=== PATIENT | male | born 1960 | race Caucasian/White ===

== ENCOUNTER → 2019-01-20 | Outpatient (CLI) | payer OTHER ==
--- NOTE | 2019-01-23 11:05 | PCVCIMAG ---
APPROVED REPORT Study performed: 01/20/2019 09:39:52 Exam: Stress Echocardiogram Indication: elevated calcium score, dyspnea, fam hx cad Patient Location: Echo lab Stress Nurse: Mahsa Araujo RN Status: routine Ht: 6 ft 0 in HR: 66 bpm BP: 120/82 mmHg Rhythm: NSR Procedure The patient underwent an Exercise Stress Test using the Rhett Protocol. Blood pressure, heart rate, and EKG were monitored. An Echocardiogram was performed by sugarcane research technician in four stages in quad fashion. At peak stress, four selected images were obtained and placed side by side with resting images for comparison. Stress Test Details Stress Test: Exercise stress testing was performed using a Rhett protocol. HR Resting HR: 66 bpmMax Heart Rate (APMHR): 163 bpm Max HR Achieved: 155 bpmTarget HR (85% APMHR): 138 bpm % of APMHR: 95 Recovery HR: 85 bpm HR response to stress: Normal HR response to stress BP Resting BP: 120/82 mmHg Max BP: 158/78 mmHg Recovery BP: 136/72 mmHg BP response to stress: Normal blood pressure response to stress. ECG Resting ECG: Sinus Rhythm Stress ECG: Sinus Rhythm ST Change: Nondiagnostic V-pacing or LBBB Maximum ST Deviation: -.1 mm Arrhythmia: None Recovery ECG: Sinus Rhythm Recovery ST Change: Normal Recovery Arrhythmia: None Clinical Reason for Termination: Maximal effort Stress Symptoms: Dyspnea Exercise duration: 10 min 40 sec Highest Stage Achieved: Stage 4: 4.2 mph at 16% grade. Exercise capacity: 13.4 METs Overall Exercise Capacity for Age: Good Scale: Active Angina Score: None Stress ECG Conclusion 1. subjectively negative for ischemia 2. electrocardiographically negative for ischemia 3. satisfactory functional capacity Mock Treadmill Score is 10.5 which is Low risk. Pre-Stress Echo The resting Echocardiogram showed normal left ventricular contractility with an estimated Ejection Fraction of about >55%. The resting echocardiogram demonstrated normal wall motion in all wall segments. Post-Stress Echo The stress Echocardiogram showed normal left ventricular contractility with an estimated Ejection Fraction of about 65%. Compared to rest, there were no stress-induced wall motion abnormalities. Clinical No clinical or ECG evidence for ischemia. Conclusion Clinical Response: Non-ischemic Exercise Capacity: Average Stress ECG Response: Non-ischemic Stress Echo Images: Non-ischemic The left ventricle is normal in size and wall thickness in both the rest and stress images. Trace mitral regurgitation. Mild pulmonic regurgitation. Mild tricuspid regurgitation with PAP of 29 mmHg. Normal aortic valve, no regurgitation or stenosis. 1. low risk study Other Information Study Quality: Adequate <Conclusion> The left ventricle is normal in size and wall thickness in both the rest and stress images. Trace mitral regurgitation. Mild pulmonic regurgitation. Mild tricuspid regurgitation with PAP of 29 mmHg. Normal aortic valve, no regurgitation or stenosis. 1. low risk study
== END | disposition home or self-care (01) ==
LOC: PCVCIMAG 09:54
PROVIDERS: ATTEND Internal Medicine
DX: I08.8 Other rheumatic multiple valve diseases (principal); R93.1 Abnormal findings on diagnostic imaging of heart and coronary circulation; R06.00 Dyspnea, unspecified; R59.0 Localized enlarged lymph nodes; L01.00 Impetigo, unspecified; E78.00 Pure hypercholesterolemia, unspecified; Z82.49 Family history of ischemic heart disease and other diseases of the circulatory system
CPT/HCPCS: 93325; 93351